=== PATIENT | female | born 1945 | race Two or more races ===

== ENCOUNTER → 2018-11-28 | Outpatient (CLI) | payer OTHER ==
[~2018-11-28] MED LIST: NABUMETONE500 MG PO; PERCOCET 5/3251 TAB PO
== END | disposition home or self-care (01) ==
LOC: SONOGRAMA 10:39
DX: M25.512 Pain in left shoulder (principal); M75.102 Unspecified rotator cuff tear or rupture of left shoulder, not specified as traumatic

== ENCOUNTER 2023-06-16 08:04 | Outpatient (CLI) | payer OTHER | END 2023-06-16 08:05 | disposition home or self-care (01) | LOC: NUCLEAR 08:04 | DX: R07.89 Other chest pain (principal); I27.0 Primary pulmonary hypertension ==